=== PATIENT | female | born 1950 | race Caucasian/White ===

== ENCOUNTER 2017-08-01 14:33 | Inpatient (IN) | payer MEDICARE, OTHER ==
[~2017-08-01] VITALS: Ht 160 cm; Wt 72.6 kg
[~2017-08-01 14:33] MED LIST: AMLO10TA6 PO; CHOL100044 PO; MELA1TAB17 PO; METF-440 PO; PRAV40TA3 PO; VIT1CAPS48 PO
[2017-08-01] MEDS ORDERED: LORAZEPAM 0.5 MG TABLET PO PRN (15:00)
[2017-08-01] MEDS ORDERED: MAG HYDROX/AL HYDROX/SIMETH 30 ML UDC PO PRN (15:00)
[2017-08-01] MEDS ORDERED: MAGNESIUM HYDROXIDE 30 ML UDC PO PRN (15:00)
[2017-08-01 16:00] VITALS: BP 127/97
[2017-08-01] MEDS ORDERED: METFORMIN 500 MG TABLET PO SCH (17:00)
[2017-08-01] MEDS ORDERED: DEXTROSE 50%-WATER 50 ML DISP.SYRIN IV PRN (17:00)
[2017-08-01] MEDS: BLOOD SUGAR DIAGNOSTIC 1 EACH STRIP IN SCH ×2 (17:34→20:28)
[2017-08-01 20:00] VITALS: BP 103/51
[2017-08-01] MEDS: ACETAMINOPHEN 325 MG TABLET PO PRN (20:27)
[2017-08-01] MEDS: ATORVASTATIN 40 MG TABLET PO SCH (21:28)
[2017-08-01] MEDS: TEMAZEPAM 7.5 MG CAPSULE PO PRN (21:29)
[2017-08-02 06:49] LABS: ALBUMIN 3.5 g/dL (3.4-5.0); BILIRUBIN,TOTAL 0.4 mg/dL (0.2-1.0); CREATININE 0.6 mg/dL (0.6-1.3); POTASSIUM 4.3 mmol/L (3.5-5.1); TOTAL PROTEIN, SERUM 6.3 g/dL (6.4-8.2)
[2017-08-02] MEDS: ACETAMINOPHEN 325 MG TABLET PO PRN ×3 (06:58→19:47)
[2017-08-02] MEDS: BLOOD SUGAR DIAGNOSTIC 1 EACH STRIP IN SCH ×4 (07:56→21:22)
[2017-08-02] MEDS: INSULIN REGULAR, HUMAN 100 UNIT/ML 3 ML VIAL SQ PRN ×3 (07:56→17:30)
[2017-08-02 08:00] VITALS: BP 117/75
[2017-08-02] MEDS: AMLODIPINE BESYLATE 10 MG TABLET PO SCH (08:42)
[2017-08-02] MEDS: CHOLECALCIFEROL 1,000 UNIT TABLET (VIT D3) PO SCH (08:42)
[2017-08-02 15:58] VITALS: BP 131/77
[2017-08-02] MEDS: METFORMIN 500 MG TABLET PO SCH (17:29)
[2017-08-02 20:14] VITALS: BP 122/72
[2017-08-02] MEDS: ATORVASTATIN 40 MG TABLET PO SCH (21:22)
[2017-08-02] MEDS: OLANZAPINE 10 MG TABLET PO SCH (21:23)
[2017-08-03] MEDS: ACETAMINOPHEN 325 MG TABLET PO PRN ×3 (04:37→18:46)
[2017-08-03] MEDS: BLOOD SUGAR DIAGNOSTIC 1 EACH STRIP IN SCH ×2 (07:30→12:00)
[2017-08-03 08:00] VITALS: BP 113/80
[2017-08-03] MEDS: METFORMIN 500 MG TABLET PO SCH ×2 (08:42→16:13)
[2017-08-03] MEDS: CHOLECALCIFEROL 1,000 UNIT TABLET (VIT D3) PO SCH (08:43)
[2017-08-03] MEDS: AMLODIPINE BESYLATE 10 MG TABLET PO SCH (08:43)
[2017-08-03] MEDS: ESCITALOPRAM OXALATE (10 MG) 10 MG TABLET PO SCH (08:56)
[2017-08-03 16:00] VITALS: BP 128/76
[2017-08-03 19:38] VITALS: BP 124/75
[2017-08-03] MEDS: ATORVASTATIN 40 MG TABLET PO SCH (21:26)
[2017-08-03] MEDS: OLANZAPINE 10 MG TABLET PO SCH (21:27)
[2017-08-04 08:00] VITALS: BP 128/87
[2017-08-04] MEDS: CHOLECALCIFEROL 1,000 UNIT TABLET (VIT D3) PO SCH (08:28)
[2017-08-04] MEDS: AMLODIPINE BESYLATE 10 MG TABLET PO SCH (08:28)
[2017-08-04] MEDS: METFORMIN 500 MG TABLET PO SCH ×2 (08:28→16:18)
[2017-08-04] MEDS: ESCITALOPRAM OXALATE (10 MG) 10 MG TABLET PO SCH (08:29)
[2017-08-04] MEDS: ACETAMINOPHEN 325 MG TABLET PO PRN ×3 (12:18→19:38)
[2017-08-04 15:56] VITALS: BP 127/78
[2017-08-04 20:21] VITALS: BP 127/78
[2017-08-04] MEDS: ATORVASTATIN 40 MG TABLET PO SCH (21:14)
[2017-08-04] MEDS: OLANZAPINE 10 MG TABLET PO SCH (21:14)
[2017-08-05 08:00] VITALS: BP 138/73
[2017-08-05] MEDS: ESCITALOPRAM OXALATE (10 MG) 10 MG TABLET PO SCH (08:16)
[2017-08-05] MEDS: CHOLECALCIFEROL 1,000 UNIT TABLET (VIT D3) PO SCH (08:16)
[2017-08-05] MEDS: AMLODIPINE BESYLATE 10 MG TABLET PO SCH (08:16)
[2017-08-05] MEDS: METFORMIN 500 MG TABLET PO SCH ×2 (08:16→16:01)
[2017-08-05] MEDS: ACETAMINOPHEN 325 MG TABLET PO PRN ×2 (09:50→18:45)
[2017-08-05 16:00] VITALS: BP 133/89
[2017-08-05 20:11] VITALS: BP 122/78
[2017-08-05] MEDS: OLANZAPINE 10 MG TABLET PO SCH (21:13)
[2017-08-05] MEDS: ATORVASTATIN 40 MG TABLET PO SCH (21:13)
[2017-08-06 08:25] VITALS: BP 125/78
[2017-08-06] MEDS: ACETAMINOPHEN 325 MG TABLET PO PRN (08:29)
[2017-08-06] MEDS: AMLODIPINE BESYLATE 10 MG TABLET PO SCH (08:29)
[2017-08-06] MEDS: CHOLECALCIFEROL 1,000 UNIT TABLET (VIT D3) PO SCH (08:29)
[2017-08-06] MEDS: METFORMIN 500 MG TABLET PO SCH ×2 (08:29→16:27)
[2017-08-06] MEDS: ESCITALOPRAM OXALATE (10 MG) 10 MG TABLET PO SCH (08:29)
[2017-08-06 13:03] LABS: BASOPHILS % (AUTO) 0.4 % (0.0-2.0); EOSINOPHILS % (AUTO) 0.9 % (0.0-6.0); HEMATOCRIT 37 % (33-45); HEMOGLOBIN 12.4 g/dL (11.5-14.8); LYMPHOCYTES # (AUTO) 2.2 /CMM (0.8-4.8); LYMPHOCYTES % (AUTO) 18.9 % (20.0-44.0); MEAN CORPUSCULAR HGB CONC 34 g/dl (31.0-36.0); MEAN CORPUSCULAR VOLUME 90 fL (82-100); MONOCYTES # (AUTO) 0.6 /CMM (0.1-1.30); MONOCYTES % (AUTO) 4.9 % (2.0-12.0); NEUTROPHILS # (AUTO) 8.9 /CMM (1.8-8.9); NEUTROPHILS % (AUTO) 74.9 % (43.0-81.0); PLATELET COUNT (AUTO) 343 /CMM (150-450); RDW COEFFICIENT OF VARIATION 13.4 (11.5-15.0); RED BLOOD CELL COUNT(AUTO) 4.08 MIL/uL (4.0-5.2); WHITE BLOOD COUNT (AUTO) 11.8 K/uL (4.3-11.0)
[2017-08-06 13:09] LABS: CALCIUM, SERUM 9.3 mg/dL (8.5-10.1); CREATININE 0.7 mg/dL (0.6-1.3); POTASSIUM 3.8 mmol/L (3.5-5.1)
[2017-08-06 15:53] VITALS: BP 140/89
[2017-08-06 20:00] VITALS: BP 139/84
[2017-08-06] MEDS: OLANZAPINE 10 MG TABLET PO SCH (21:37)
[2017-08-06] MEDS: ATORVASTATIN 40 MG TABLET PO SCH (21:37)
[2017-08-07 08:00] VITALS: BP 120/91
[2017-08-07] MEDS: ESCITALOPRAM OXALATE (10 MG) 10 MG TABLET PO SCH (08:53)
[2017-08-07] MEDS: METFORMIN 500 MG TABLET PO SCH ×2 (08:53→16:47)
[2017-08-07] MEDS: CHOLECALCIFEROL 1,000 UNIT TABLET (VIT D3) PO SCH (08:53)
[2017-08-07] MEDS: AMLODIPINE BESYLATE 10 MG TABLET PO SCH (08:53)
[2017-08-07] MEDS ORDERED: diphenhydrAMINE HCL 25 MG CAPSULE PO PRN (14:00)
[2017-08-07 16:54] VITALS: BP 117/75
[2017-08-07 20:00] VITALS: BP 132/74
[2017-08-07] MEDS: TEMAZEPAM 7.5 MG CAPSULE PO PRN (21:51)
[2017-08-07] MEDS: OLANZAPINE 10 MG TABLET PO SCH (21:51)
[2017-08-07] MEDS: ATORVASTATIN 40 MG TABLET PO SCH (21:51)
[2017-08-08 08:09] VITALS: BP 142/79
[2017-08-08] MEDS: AMLODIPINE BESYLATE 10 MG TABLET PO SCH (08:23)
[2017-08-08] MEDS: METFORMIN 500 MG TABLET PO SCH ×2 (08:23→16:55)
[2017-08-08] MEDS: CHOLECALCIFEROL 1,000 UNIT TABLET (VIT D3) PO SCH (08:23)
[2017-08-08] MEDS: ESCITALOPRAM OXALATE (10 MG) 10 MG TABLET PO SCH (08:23)
[2017-08-08] MEDS: ACETAMINOPHEN 325 MG TABLET PO PRN ×2 (10:55→21:56)
[2017-08-08 16:24] VITALS: BP 127/72
[2017-08-08 20:00] VITALS: BP 131/72
[2017-08-08] MEDS: ATORVASTATIN 40 MG TABLET PO SCH (21:56)
[2017-08-08] MEDS: TEMAZEPAM 7.5 MG CAPSULE PO PRN (21:56)
[2017-08-08] MEDS: OLANZAPINE 10 MG TABLET PO SCH (21:56)
[2017-08-09] MEDS: CHOLECALCIFEROL 1,000 UNIT TABLET (VIT D3) PO SCH (08:05)
[2017-08-09] MEDS: AMLODIPINE BESYLATE 10 MG TABLET PO SCH (08:06)
[2017-08-09] MEDS: METFORMIN 500 MG TABLET PO SCH ×2 (08:06→16:19)
[2017-08-09] MEDS: ESCITALOPRAM OXALATE (10 MG) 10 MG TABLET PO SCH (08:06)
[2017-08-09 08:31] VITALS: BP 124/77
[2017-08-09] MEDS: ACETAMINOPHEN 325 MG TABLET PO PRN (09:41)
[2017-08-09] MEDS: CLOBETASOL 0.05% CREAM 15 GM TUBE TP SCH (16:20)
[2017-08-09 16:35] VITALS: BP 134/93
[2017-08-09 20:04] VITALS: BP 126/63
[2017-08-09] MEDS: ATORVASTATIN 40 MG TABLET PO SCH (21:29)
[2017-08-09] MEDS: OLANZAPINE 10 MG TABLET PO SCH (21:29)
[2017-08-10 08:00] VITALS: BP 136/85
[2017-08-10] MEDS: ESCITALOPRAM OXALATE (10 MG) 10 MG TABLET PO SCH (08:11)
[2017-08-10] MEDS: CHOLECALCIFEROL 1,000 UNIT TABLET (VIT D3) PO SCH (08:11)
[2017-08-10] MEDS: METFORMIN 500 MG TABLET PO SCH ×2 (08:11→16:32)
[2017-08-10] MEDS: AMLODIPINE BESYLATE 10 MG TABLET PO SCH (08:12)
[2017-08-10] MEDS: CLOBETASOL 0.05% CREAM 15 GM TUBE TP SCH ×2 (08:28→17:46)
[2017-08-10] MEDS: ACETAMINOPHEN 325 MG TABLET PO PRN (10:57)
[2017-08-10 16:00] VITALS: BP 134/72
[2017-08-10 19:42] VITALS: BP 111/67
[2017-08-10] MEDS: OLANZAPINE 10 MG TABLET PO SCH (21:23)
[2017-08-10] MEDS: TEMAZEPAM 7.5 MG CAPSULE PO PRN (21:24)
[2017-08-10] MEDS: ATORVASTATIN 40 MG TABLET PO SCH (21:24)
[2017-08-11 08:00] VITALS: BP 120/85
[2017-08-11 09:20] VITALS: BP 120/85
[2017-08-11] MEDS: AMLODIPINE BESYLATE 10 MG TABLET PO SCH (09:20)
[2017-08-11] MEDS: ESCITALOPRAM OXALATE (10 MG) 10 MG TABLET PO SCH (09:20)
[2017-08-11] MEDS: CHOLECALCIFEROL 1,000 UNIT TABLET (VIT D3) PO SCH (09:20)
[2017-08-11] MEDS: METFORMIN 500 MG TABLET PO SCH (09:21)
[2017-08-11] MEDS: CLOBETASOL 0.05% CREAM 15 GM TUBE TP SCH (09:21)
== END 2017-08-11 11:20 | disposition home or self-care (01) | DRG 885 ==
LOC: GPS 14:33
PROVIDERS: ADMIT Psychiatry & Neurology Psychiatry; ATTEND Nurse Practitioner Acute Care
DX: F31.30 Bipolar disorder, current episode depressed, mild or moderate severity, unspecified (principal); F33.2 Major depressive disorder, recurrent severe without psychotic features; F25.9 Schizoaffective disorder, unspecified; R45.851 Suicidal ideations; E11.9 Type 2 diabetes mellitus without complications; F29 Unspecified psychosis not due to a substance or known physiological condition; E55.9 Vitamin D deficiency, unspecified; E78.5 Hyperlipidemia, unspecified; F11.10 Opioid abuse, uncomplicated; I10 Essential (primary) hypertension; R21 Rash and other nonspecific skin eruption; Z79.84 Long term (current) use of oral hypoglycemic drugs
CPT/HCPCS: 36415; 80048-TC; 80053-TC; 80061-TC; 82962-TC; 85025-TC; 87081-TC; A6403; J1815

== ENCOUNTER 2023-08-14 17:12 | Inpatient (IN) | payer MEDICARE, OTHER ==
[~2023-08-14] VITALS: Ht 152.4 cm; Wt 74.8 kg
[~2023-08-14 17:12] MED LIST changes: +AMLO-213 PO; -AMLO10TA6 PO
[2023-08-14 20:00] VITALS: BP 148/46; TEMP 98.5; O2SAT 95
[2023-08-14] MEDS ORDERED: ESCI20TA PO (20:03)
[2023-08-14] MEDS ORDERED: ATOR10TA PO (20:04)
[2023-08-14] MEDS ORDERED: DIVA250T47 PO (20:05)
[2023-08-14] MEDS ORDERED: BUSP5TAB3 PO (20:05)
[2023-08-14] MEDS ORDERED: PANT40TA49 PO (20:07)
[2023-08-14] MEDS ORDERED: OLAN20TA3 PO (20:07)
[2023-08-14] MEDS ORDERED: MAGNESIUM HYDROXIDE 30 ML UDC PO PRN (20:30)
[2023-08-14] MEDS ORDERED: MAG HYDROX/AL HYDROX/SIMETH 30 ML UDC PO PRN (20:30)
[2023-08-14] MEDS: BLOOD SUGAR DIAGNOSTIC 1 EACH STRIP IN ONE (21:20)
[2023-08-14] MEDS ORDERED: Z GUARD REMEDY 4 OZ OINT TP PRN (21:30)
[2023-08-15] MEDS: ACETAMINOPHEN 325 MG TABLET PO PRN (05:55)
[2023-08-15 08:00] VITALS: BP 143/93; TEMP 98.4; O2SAT 98
[2023-08-15] MEDS: CHOLECALCIFEROL 1,000 UNIT TABLET (VIT D3) PO SCH (08:17)
[2023-08-15] MEDS: NITROFURANTOIN/MONOHYDRATE MACROCRYSTALS 100 MG CAPSULE PO SCH (08:17)
[2023-08-15] MEDS: PANTOPRAZOLE 40 MG TABLET.DR PO SCH (08:17)
[2023-08-15] MEDS: NICOTINE PATCH (7MG) 7 MG PATCH.TD24 TD SCH (08:17)
[2023-08-15] MEDS: METFORMIN 500 MG TABLET PO SCH (08:17)
[2023-08-15] MEDS: AMLODIPINE BESYLATE 10 MG TABLET PO SCH (08:18)
[2023-08-15] MEDS ORDERED: VIT A PO SCH (09:00)
[2023-08-15] MEDS ORDERED: D3 PO SCH (09:00)
[2023-08-15] MEDS ORDERED: [UNRECOGNIZED DRUG - OTHER] PO SCH (09:00)
[2023-08-15] MEDS ORDERED: DIVALPROEX SODIUM 125 MG CAP.SPRINK PO SCH (12:00)
[2023-08-15] MEDS ORDERED: OLANZAPINE 5 MG TABLET PO SCH (12:00)
[2023-08-15 16:00] VITALS: BP_SYST 124; BP_SYST 127; BP_DIAS 12; BP_DIAS 82; TEMP 98; O2SAT 96
[2023-08-15 20:00] VITALS: BP_SYST 154; BP_SYST 159; BP_DIAS 91; TEMP 98.2; O2SAT 95
[2023-08-15] MEDS: ATORVASTATIN 10 MG TABLET PO SCH (21:25)
[2023-08-15] MEDS: ZOLPIDEM TARTRATE 5 MG TABLET PO PRN (21:25)
[2023-08-16 08:00] VITALS: BP 145/92; TEMP 98.1; O2SAT 96
[2023-08-16] MEDS: ARIPIPRAZOLE 5 MG TABLET PO SCH (11:26)
[2023-08-16 16:00] VITALS: BP 141/97; TEMP 97.7; O2SAT 98
[2023-08-16 20:32] VITALS: BP 122/98; TEMP 98; O2SAT 96
[2023-08-17] MEDS: LORAZEPAM 1 MG TABLET PO PRN (03:44)
[2023-08-17 08:00] VITALS: BP 136/70; TEMP 97.6; O2SAT 94
[2023-08-17 16:00] VITALS: BP 150/93; TEMP 97.8; O2SAT 96
[2023-08-17 16:25] LABS: CALCIUM, SERUM 9.3 mg/dL (8.5-10.1); CREATININE 0.7 mg/dL (0.6-1.3); MAGNESIUM 2.1 mg/dL (1.8-2.4); PHOSPHORUS 3.7 mg/dL (2.5-4.9); POTASSIUM 3.7 mmol/L (3.5-5.1)
[2023-08-17 16:38] LABS: THYROID STIMULATING HORMONE 1.092 uIU/mL (0.358-3.74)
[2023-08-17 16:39] LABS: URIC ACID 4.3 mg/dL (2.6-7.2)
[2023-08-17 17:22] LABS: BASOPHILS % (AUTO) 0.3 % (0.0-2.0); EOSINOPHILS # (AUTO) 0.1 K/uL (0.0-0.7); EOSINOPHILS % (AUTO) 1.1 % (0.0-6.0); HEMATOCRIT 40 % (33-45); HEMOGLOBIN 13.3 g/dL (11.5-14.8); LYMPHOCYTES # (AUTO) 1.9 K/uL (0.8-4.8); LYMPHOCYTES % (AUTO) 22.2 % (20.0-44.0); MEAN CORPUSCULAR HEMOGLOBIN 31 PG (26.0-33.0); MEAN CORPUSCULAR HGB CONC 34 g/dl (31.0-36.0); MEAN CORPUSCULAR VOLUME 93 fL (82-100); MONOCYTES # (AUTO) 0.6 K/uL (0.1-1.30); MONOCYTES % (AUTO) 7.3 % (2.0-12.0); NEUTROPHILS % (AUTO) 69.1 % (43.0-81.0); PLATELET COUNT (AUTO) 351 K/uL (150-450); RED BLOOD CELL COUNT(AUTO) 4.27 MIL/uL (4.0-5.2); RED CELL DISTRIBUTION WIDTH 13.7 % (11.5-15.0); WHITE BLOOD COUNT (AUTO) 8.7 K/uL (4.3-11.0)
[2023-08-17 20:36] VITALS: BP 133/77; TEMP 97.9; O2SAT 98
[2023-08-18 07:14] LABS: BASOPHILS % (AUTO) 0.6 % (0.0-2.0); EOSINOPHILS # (AUTO) 0.1 K/uL (0.0-0.7); EOSINOPHILS % (AUTO) 0.9 % (0.0-6.0); HEMATOCRIT 40 % (33-45); HEMOGLOBIN 13.5 g/dL (11.5-14.8); LYMPHOCYTES # (AUTO) 1.7 K/uL (0.8-4.8); LYMPHOCYTES % (AUTO) 22.3 % (20.0-44.0); MEAN CORPUSCULAR HEMOGLOBIN 31 PG (26.0-33.0); MEAN CORPUSCULAR HGB CONC 34 g/dl (31.0-36.0); MEAN CORPUSCULAR VOLUME 92 fL (82-100); MONOCYTES # (AUTO) 0.6 K/uL (0.1-1.30); MONOCYTES % (AUTO) 8.2 % (2.0-12.0); NEUTROPHILS # (AUTO) 5.1 K/uL (1.8-8.9); PLATELET COUNT (AUTO) 360 K/uL (150-450); RED BLOOD CELL COUNT(AUTO) 4.33 MIL/uL (4.0-5.2); RED CELL DISTRIBUTION WIDTH 13.5 % (11.5-15.0); WHITE BLOOD COUNT (AUTO) 7.6 K/uL (4.3-11.0)
[2023-08-18 07:49] LABS: CHOLESTEROL 144 mg/dL (<200); HDL CHOLESTEROL 68 mg/dL (40-60); LDL 58 mg/dL (0-99); THYROID STIMULATING HORMONE 1.017 uIU/mL (0.358-3.74); TRIGLYCERIDES 93 mg/dL (30-150)
[2023-08-18 07:52] LABS: ALANINE AMINOTRANSFERASE 44 U/L (12-78); ALBUMIN 3.8 g/dL (3.4-5.0); ALKALINE PHOSPHATASE 88 U/L (46-116); ASPARTATE AMINOTRANSFERASE 20 U/L (15-37); BILIRUBIN,TOTAL 0.7 mg/dL (0.2-1.0); CALCIUM, SERUM 9.6 mg/dL (8.5-10.1); CARBON DIOXIDE 24 mmol/L (21-32); CHLORIDE 98 mmol/L (98-107); CREATININE 0.6 mg/dL (0.6-1.3); GLUCOSE 112 mg/dL (74-106); POTASSIUM 3.7 mmol/L (3.5-5.1); SODIUM SERUM 133 mmol/L (136-145); TOTAL PROTEIN, SERUM 7.6 g/dL (6.4-8.2); UREA NITROGEN, BLOOD 11 mg/dL (7-18)
[2023-08-18 08:00] VITALS: BP 170/90; TEMP 98.6; O2SAT 98
[2023-08-18 16:00] VITALS: BP 149/88; TEMP 98.5; O2SAT 94
[2023-08-18 21:14] VITALS: BP 136/85; TEMP 97.9; O2SAT 96
[2023-08-19 08:00] VITALS: BP 149/81; TEMP 98.1; O2SAT 98
[2023-08-19 16:00] VITALS: BP 138/90; TEMP 98.7; O2SAT 96
[2023-08-19 20:00] VITALS: BP 126/50; TEMP 98.3; O2SAT 99
[2023-08-20 08:00] VITALS: BP 128/98; TEMP 97.6; O2SAT 100
[2023-08-20 08:27] VITALS: BP 128/98
== END 2023-08-20 12:00 | disposition home or self-care (01) | DRG 885 ==
LOC: GPS 18:37
PROVIDERS: ADMIT Nurse Practitioner Family; ATTEND Psychiatry & Neurology Psychiatry
DX: F31.64 Bipolar disorder, current episode mixed, severe, with psychotic features (principal); N39.0 Urinary tract infection, site not specified; E22.2 Syndrome of inappropriate secretion of antidiuretic hormone; I10 Essential (primary) hypertension; F17.210 Nicotine dependence, cigarettes, uncomplicated; Z85.038 Personal history of other malignant neoplasm of large intestine; G47.00 Insomnia, unspecified; Z73.6 Limitation of activities due to disability; D72.829 Elevated white blood cell count, unspecified; B96.89 Other specified bacterial agents as the cause of diseases classified elsewhere; F29 Unspecified psychosis not due to a substance or known physiological condition
CPT/HCPCS: 36415; 80048-TC; 80053-TC; 80061-TC; 82533; 82962-TC; 83735-TC; 84100-TC; 84439-TC; 84443-TC; 84550-TC; 85025-TC; 87081-TC; 97116-TC; 97530-TC